=== PATIENT | female | born 1980 | race Caucasian/White ===

== ENCOUNTER 2023-08-28 21:34 | Inpatient (IN) | payer OTHER ==
[2023-08-28 12:36] VITALS: BMI 21.9
[2023-08-28] MEDS: TRIMETHOBENZAMIDE HCL 200MG/2ML INJ IM ONE (16:56)
[~2023-08-28 21:34] MED LIST: TRIMETHOBENZAMIDE HCL 200MG/2ML INJ IM ONE
[2023-08-28] MEDS ORDERED: ACETAMINOPHEN 325 MG TABLET (FP) PO PRN (23:21)
[2023-08-28] MEDS ORDERED: NALOXONE HCL (KLOXXADO) 8 MG SPRAY NS PRN (23:21)
[2023-08-28] MEDS ORDERED: DICYCLOMINE HCL 10 MG CAPSULE PO PRN (23:21)
[2023-08-28] MEDS ORDERED: hydrOXYzine PAMOATE 25 MG CAPSULE (FP) PO PRN (23:21)
[2023-08-28] MEDS ORDERED: BISMUTH SUBSALICYLATE 524 MG/30 ML PO PRN (23:21)
[2023-08-28] MEDS ORDERED: BENZONATATE 200 MG CAPSULE PO PRN (23:21)
[2023-08-28] MEDS ORDERED: POLYETHYLENE GLYCOL (HEALTHYLAX) 3350 17 GM PACKET PO PRN (23:21)
[2023-08-28] MEDS ORDERED: ONDANSETRON *ODT* 4 MG TABLET SL PRN (23:21)
[2023-08-28] MEDS ORDERED: NALOXONE HCL 0.4 MG/ML VIAL IM PRN (23:21)
[2023-08-28] MEDS ORDERED: guaiFENesin 600 MG TABLET.ER (FP) PO PRN (23:21)
[2023-08-28] MEDS ORDERED: IBUPROFEN 400 MG TABLET (FP) PO PRN (23:21)
[2023-08-28] MEDS ORDERED: MAG HYDROX/AL HYDROX/SIMETH 30 ML UNIT-DOSE CUP PO PRN (23:21)
[2023-08-28] MEDS ORDERED: MAGNESIUM HYDROX 2400MG/30ML ORAL SUSPENSION 30 ML CUP PO PRN (23:21)
[2023-08-28] MEDS ORDERED: IBUPROFEN 600 MG TABLET (FP) PO PRN (23:21)
[2023-08-29] MEDS ORDERED: cloNIDine HCL 0.1 MG TABLET PO PRN (04:18)
[2023-08-29] MEDS: methaDONE HCL 10 MG TABLET (FOR DETOX USE ONLY) PO ONE (04:30)
[2023-08-29] MEDS: PRENATAL VITAMINS W/ FOLIC ACID TABLET (FP) PO SCH (10:32)
[2023-08-29] MEDS: NICOTINE 14 MG/24 HOURS TOPICAL PATCH TD SCH (10:32)
[2023-08-29] MEDS: methaDONE HCL 10 MG TABLET PO ONE (13:37)
[2023-08-29] MEDS: cloNIDine HCL 0.1 MG TABLET PO SCH (13:38)
[2023-08-29] MEDS: GABAPENTIN 300 MG CAPSULE PO SCH (13:38)
[2023-08-29] MEDS ORDERED: GABAPENTIN 400 MG CAPSULE PO SCH (14:00)
[2023-08-29] MEDS ORDERED: methaDONE HCL 10 MG TABLET PO PRN (15:15)
[2023-08-29] MEDS: THIAMINE 100 MG TABLET PO SCH (22:47)
[2023-08-29] MEDS: MELATONIN 5 MG TABLETS PO SCH (22:48)
[2023-08-30] MEDS: methaDONE 40 MG, methaDONE 10 MG PO ONE (06:17)
[2023-08-30] MEDS: NICOTINE POLACRILEX 2 MG GUM BUC PRN (10:10)
[2023-08-30] MEDS: diazePAM 5 MG TABLET PO PRN (17:28)
[2023-08-30] MEDS: LOPERAMIDE HCL 2 MG CAPSULE PO PRN (21:53)
[2023-08-30] MEDS: METHOCARBAMOL 500 MG TABLET PO PRN (21:54)
[2023-08-31] MEDS ORDERED: cloNIDine HCL 0.1 MG TABLET PO PRN
[2023-08-31] MEDS: methaDONE 40 MG, methaDONE 20 MG PO ONE (05:42)
[2023-08-31] MEDS: MINERAL OIL/PETROLAT/WATER TOPICAL CREAM 113 GM JAR TP SCH (09:57)
[2023-08-31] MEDS ORDERED: methaDONE HCL 10 MG TABLET (FOR DETOX USE ONLY) PO ONE (10:00)
[2023-08-31] MEDS: BENZOCAINE/MENTHOL (CHLORASEPTIC ) LOZENGE MM PRN (14:33)
[2023-09-01] MEDS: methaDONE 40 MG, methaDONE 30 MG PO ONE (05:25)
[2023-09-01] MEDS: guaiFENesin 200 MG/10 ML 10 ML UNIT-DOSE CUPS PO PRN (05:27)
[2023-09-02] MEDS: methaDONE HCL 40 MG DISPERSABLE TABLET PO ONE (06:35)
[2023-09-02] MEDS ORDERED: methaDONE HCL 10 MG TABLET (FOR DETOX USE ONLY) PO ONE (10:00)
[2023-09-02] MEDS: NICOTINE POLACRILEX 2 MG LOZENGE BC PRN (10:45)
[2023-09-02] MEDS ORDERED: methaDONE HCL 10 MG TABLET PO ONE (12:16)
[2023-09-02] MEDS: ALBUTEROL SO4 2.5/IPRATROPIUM 0.5 INH SOL 3 ML VIAL.NEB. NEB SCH (12:48)
[2023-09-02] MEDS: methaDONE 40 MG, methaDONE 30 MG PO ONE (12:48)
[2023-09-02] MEDS: ALBUTEROL SO4 2.5/IPRATROPIUM 0.5 INH SOL 3 ML VIAL.NEB. NEB ONE (17:20)
[2023-09-03] MEDS: methaDONE 40 MG, methaDONE 30 MG PO ONE (05:49)
[2023-09-03] MEDS ORDERED: methaDONE 80 MG, methaDONE 10 MG PO ONE (06:00)
[2023-09-03] MEDS ORDERED: methaDONE HCL 40 MG DISPERSABLE TABLET PO ONE ×2 (06:00)
[2023-09-03 09:27] VITALS: BP 98/62; PULSE 92; RESP 18; TEMP 97.7
[2023-09-03] MEDS: predniSONE 20 MG TABLET (UD) PO SCH (09:44)
== END 2023-09-03 09:35 | disposition home or self-care (01) | DRG 773 ==
LOC: YASAS 21:34 → Y6N 23:35
PROVIDERS: ADMIT Allergy & Immunology; ATTEND Surgery
PROC: HZ2ZZZZ Detoxification Services for Substance Abuse Treatment (ICD-10-PCS; principal; 2023-08-28)
DX: F11.23 Opioid dependence with withdrawal (principal); F14.20 Cocaine dependence, uncomplicated; F17.210 Nicotine dependence, cigarettes, uncomplicated; F19.280 Other psychoactive substance dependence with psychoactive substance-induced anxiety disorder; F19.282 Other psychoactive substance dependence with psychoactive substance-induced sleep disorder; F41.9 Anxiety disorder, unspecified; J44.1 Chronic obstructive pulmonary disease with (acute) exacerbation; L85.3 Xerosis cutis; Z56.0 Unemployment, unspecified; Z59.00 Homelessness unspecified
CPT/HCPCS: 36415; 71045-TC-FY; 80053; 81025; 83690; 83735; 84484; 84703; 85025; 93005; 93010; 94640; 99282-25; J0131

== ENCOUNTER 2023-09-02 00:24 | Emergency (ER) | payer OTHER ==
[2023-09-02 00:34] VITALS: BMI 21.9
[2023-09-02] MEDS ORDERED: predniSONE 20 MG TABLET (UD) ONE (00:56)
[2023-09-02] MEDS ORDERED: FAMOTIDINE 20 MG TABLET ONE (00:56)
[2023-09-02] MEDS: predniSONE 20 MG TABLET (UD) PO ONE (00:58)
[2023-09-02] MEDS: FAMOTIDINE 10 MG TABLET PO ONE (00:58)
[2023-09-02 06:49] VITALS: BP 114/68; PULSE 81; RESP 18; TEMP 98.3
== END 2023-09-02 08:12 | disposition home or self-care (01) ==
LOC: JER 00:24
DX: R06.02 Shortness of breath (principal); R05.9 Cough, unspecified
CPT/HCPCS: 71045-TC-FY; 99283-25